=== PATIENT | female | born 1975 | race Native Hawaiian/Other Pacific Islander ===

== ENCOUNTER 2019-06-10 07:21 | Outpatient (CLI) | payer OTHER ==
[2019-06-10 08:17] LABS: PLATELET COUNT 299 K/uL (152-353)
[2019-06-10 08:26] LABS: POTASSIUM 4.1 mmol/L (3.6-5.2)
== END 2019-06-10 21:51 | disposition home or self-care (01) ==
LOC: LABW 07:21
PROVIDERS: Family Medicine
DX: R53.83 Other fatigue (principal); E55.9 Vitamin D deficiency, unspecified; E34.9 Endocrine disorder, unspecified; E03.9 Hypothyroidism, unspecified
CPT/HCPCS: 36415; 80053; 80061; 81000; 82306; 82607; 82670; 83001; 83036; 84144; 84403; 84436; 84443; 84481; 84550; 85027; 86141; 86376; 87077; 87086; 87088; 87186

== ENCOUNTER 2019-10-04 08:53 | Outpatient (CLI) | payer OTHER | END 2019-10-04 21:57 | disposition home or self-care (01) | LOC: LABW 08:53 | DX: E34.9 Endocrine disorder, unspecified (principal); E03.9 Hypothyroidism, unspecified | CPT/HCPCS: 36415; 84144; 84403; 84443; 84481 ==

== ENCOUNTER 2020-02-10 14:41 | Outpatient (CLI) | payer OTHER | END 2020-02-10 23:04 | disposition home or self-care (01) | LOC: LABW 14:41 | DX: B34.9 Viral infection, unspecified (principal) | CPT/HCPCS: 36415; 86769 ==

== ENCOUNTER 2020-08-16 07:03 | Outpatient (CLI) | payer OTHER ==
[2020-08-16 07:39] LABS: PLATELET COUNT 284 K/uL (152-353)
[2020-08-16 08:44] LABS: POTASSIUM 4.2 mmol/L (3.6-5.2)
== END 2020-08-16 18:55 | disposition home or self-care (01) ==
LOC: LABW 07:03
PROVIDERS: ATTEND Family Medicine
DX: Z00.00 Encounter for general adult medical examination without abnormal findings (principal); R53.83 Other fatigue; E55.9 Vitamin D deficiency, unspecified; E34.9 Endocrine disorder, unspecified; E03.9 Hypothyroidism, unspecified
CPT/HCPCS: 36415; 80053; 80061; 81000; 82306; 82607; 82677; 82728; 83001; 83036; 84144; 84403; 84436; 84443; 84481; 84550; 85027; 86140; 86376; 87077; 87086; 87088; 87186

== ENCOUNTER 2020-10-16 07:47 | Outpatient (CLI) | payer OTHER | END 2020-10-16 19:34 | disposition home or self-care (01) | LOC: US 07:47 | PROVIDERS: ATTEND Urology | DX: N30.20 Other chronic cystitis without hematuria (principal) ==

== ENCOUNTER 2021-10-28 06:56 | Outpatient (CLI) | payer OTHER ==
[2021-10-28 07:17] LABS: PLATELET COUNT 248 K/uL (152-353)
[2021-10-28 07:44] LABS: POTASSIUM 3.9 mmol/L (3.6-5.2)
== END 2021-10-28 18:55 | disposition home or self-care (01) ==
LOC: LABW 06:56
PROVIDERS: ATTEND Nurse Practitioner Family
DX: F41.9 Anxiety disorder, unspecified (principal); M54.30 Sciatica, unspecified side; I10 Essential (primary) hypertension; E78.2 Mixed hyperlipidemia; E55.9 Vitamin D deficiency, unspecified; Z86.2 Personal history of diseases of the blood and blood-forming organs and certain disorders involving the immune mechanism; R73.9 Hyperglycemia, unspecified; Z79.899 Other long term (current) drug therapy; R53.83 Other fatigue; R53.81 Other malaise; Z09 Encounter for follow-up examination after completed treatment for conditions other than malignant neoplasm
CPT/HCPCS: 36415; 80053; 80061; 82306; 82607; 82670; 83001; 83036; 84144; 84403; 84439; 84443; 85027

== ENCOUNTER 2021-12-18 16:39 | Outpatient (CLI) | payer OTHER | END 2021-12-18 21:45 | disposition home or self-care (01) | LOC: LAB 16:39 | PROVIDERS: ATTEND Nurse Practitioner Family | DX: E03.9 Hypothyroidism, unspecified (principal) | CPT/HCPCS: 84439; 84443 ==

== ENCOUNTER 2022-05-01 12:10 | Outpatient (CLI) | payer OTHER ==
[2022-05-01 13:39] LABS: PLATELET COUNT 276 K/uL (152-353)
[2022-05-01 13:50] LABS: POTASSIUM 4.1 mmol/L (3.6-5.2)
== END 2022-05-01 20:53 | disposition home or self-care (01) ==
LOC: LAB 12:10
PROVIDERS: ATTEND Nurse Practitioner Family
DX: F41.9 Anxiety disorder, unspecified (principal); I10 Essential (primary) hypertension; E03.8 Other specified hypothyroidism; Z86.2 Personal history of diseases of the blood and blood-forming organs and certain disorders involving the immune mechanism; E78.2 Mixed hyperlipidemia; E55.9 Vitamin D deficiency, unspecified; R73.9 Hyperglycemia, unspecified; R53.81 Other malaise; E88.81 Metabolic syndrome and other insulin resistance; Z09 Encounter for follow-up examination after completed treatment for conditions other than malignant neoplasm
CPT/HCPCS: 80053; 80061; 82306; 82670; 83001; 83036; 84403; 84439; 84443; 85027

== ENCOUNTER 2022-07-03 14:36 | Outpatient (CLI) | payer OTHER ==
[2022-07-03 14:46] LABS: PLATELET COUNT 274 K/uL (152-353)
== END 2022-07-03 19:04 | disposition home or self-care (01) ==
LOC: LAB 14:36
PROVIDERS: ATTEND Nurse Practitioner Family
DX: R68.82 Decreased libido (principal); Z79.890 Hormone replacement therapy
CPT/HCPCS: 82670; 83001; 84403; 85027

== ENCOUNTER 2022-07-17 13:31 | Outpatient (CLI) | payer OTHER ==
[2022-07-17 14:09] LABS: PLATELET COUNT 296 K/uL (152-353)
[2022-07-17 14:17] LABS: POTASSIUM 4.4 mmol/L (3.6-5.2)
== END 2022-07-17 19:06 | disposition home or self-care (01) ==
LOC: LAB 13:31
PROVIDERS: ATTEND Nurse Practitioner Family
DX: F41.9 Anxiety disorder, unspecified (principal); I10 Essential (primary) hypertension; E03.8 Other specified hypothyroidism; E78.2 Mixed hyperlipidemia; E55.9 Vitamin D deficiency, unspecified; R73.9 Hyperglycemia, unspecified; R53.81 Other malaise; Z86.2 Personal history of diseases of the blood and blood-forming organs and certain disorders involving the immune mechanism; Z79.890 Hormone replacement therapy; E88.81 Metabolic syndrome and other insulin resistance; R68.82 Decreased libido; Z79.899 Other long term (current) drug therapy; Z09 Encounter for follow-up examination after completed treatment for conditions other than malignant neoplasm
CPT/HCPCS: 80053; 80061; 82306; 82607; 83036; 84439; 84443; 85027

== ENCOUNTER 2022-10-16 11:39 | Outpatient (CLI) | payer OTHER ==
[2022-10-16 12:02] LABS: PLATELET COUNT 285 K/uL (152-353)
== END 2022-10-16 19:19 | disposition home or self-care (01) ==
LOC: LAB 11:39
PROVIDERS: ATTEND Nurse Practitioner Family
DX: F41.9 Anxiety disorder, unspecified (principal); I10 Essential (primary) hypertension; E03.8 Other specified hypothyroidism; E78.2 Mixed hyperlipidemia; E55.9 Vitamin D deficiency, unspecified; Z86.2 Personal history of diseases of the blood and blood-forming organs and certain disorders involving the immune mechanism; R53.81 Other malaise; M54.30 Sciatica, unspecified side; E88.81 Metabolic syndrome and other insulin resistance; R68.82 Decreased libido; Z79.899 Other long term (current) drug therapy; B34.9 Viral infection, unspecified; Z09 Encounter for follow-up examination after completed treatment for conditions other than malignant neoplasm
CPT/HCPCS: 80053; 80061; 82306; 83036; 84439; 84443; 85027

== ENCOUNTER 2023-01-19 15:14 | Outpatient (CLI) | payer OTHER ==
[2023-01-19 16:02] LABS: PLATELET COUNT 259 K/uL (152-353)
[2023-01-19 16:26] LABS: POTASSIUM 4.5 mmol/L (3.6-5.2)
== END 2023-01-19 19:27 | disposition home or self-care (01) ==
LOC: LAB 15:14
PROVIDERS: ATTEND Nurse Practitioner Family
DX: I10 Essential (primary) hypertension (principal); E78.2 Mixed hyperlipidemia; R53.81 Other malaise; E88.81 Metabolic syndrome and other insulin resistance; E03.8 Other specified hypothyroidism; R73.9 Hyperglycemia, unspecified
CPT/HCPCS: 80053; 80061; 83036; 84439; 84443; 85027

== ENCOUNTER 2023-04-30 13:29 | Outpatient (CLI) | payer OTHER ==
[2023-04-30 13:48] LABS: PLATELET COUNT 242 K/uL (152-353)
[2023-04-30 14:06] LABS: POTASSIUM 4.3 mmol/L (3.6-5.2)
== END 2023-04-30 18:52 | disposition home or self-care (01) ==
LOC: LAB 13:29
PROVIDERS: ATTEND Nurse Practitioner Family
DX: E03.8 Other specified hypothyroidism (principal); E55.9 Vitamin D deficiency, unspecified; I10 Essential (primary) hypertension; E78.2 Mixed hyperlipidemia; R53.81 Other malaise; Z79.899 Other long term (current) drug therapy; E88.81 Metabolic syndrome and other insulin resistance; Z86.2 Personal history of diseases of the blood and blood-forming organs and certain disorders involving the immune mechanism
CPT/HCPCS: 80053; 80061; 82306; 83036; 84439; 84443; 85027